=== PATIENT | female | born 1950 | race Caucasian/White ===

== ENCOUNTER → 2019-05-06 | Outpatient (CLI) | payer MEDICARE, OTHER ==
[~2019-05-06] MED LIST: HCTZ25 PO; LEV100 PO; LIS20 PO
--- NOTE | 2019-05-06 16:12 | RADIOLOGY IMAGING REPORT ---
FACILITY: [facility] PATIENT NAME: Liliya Astudillo : 1950 MR: [id number] V: [id number] EXAM DATE: ORDERING PHYSICIAN: SITA SCHWARTZ TECHNOLOGIST: Location: [facility] [place] Patient: Liliya Astudillo : 1950 Visit/Account:[id number] Date of Sevice: 05/06/2019 DEXA Scan Clinical history: Osteopenia. Comparison: None available. LUMBAR SPINE: The bone mineral density (BMD) measured from L1-L4 correlates with a Z-score 0.6 and a T-score of -1. 5 which is osteopenia as defined by the World Health Organization. The corresponding risk of fractur e in the lumbar spine is 3 times compared with a young adult reference population. This value has in creased by 1.3% as compared to prior study. 5% is considered significant. HIP: Bone mineral density (BMD) measured in the Left total hip region correlates with a Z-score -1.4 and a T-score of -3.1 which is osteoporosis as defined by the World Health Organization. The correspondin g risk of fracture in the hip is 8-12 times compared with a young adult reference population. This value has decreased by 1.9% as compared to prior study. Bone mineral density (BMD) measured in the Femoral Neck region measures 0.625 g/cm2. T score is -3.0 , osteoporosis Impression: 1. Lumbar spine: Osteopenia. Significant change as compared to prior study 2. Left Hip: Osteoporosis. No significant interval change as compared to prior study. 3. Femoral Neck: Bone Mineral Density is 0.65 g/cm2 osteoporosis. The next DEXA scan of this patient should include the following sites: L1-L4 and the left hip. FRAX? WHO Fracture Risk Assessment Tool link: <http://www.shef.ac.uk/FRAX/tool.jsp?locationValue=9> PLEASE NOTE: 1) The World Health Organization defines low BMD as follows: T-score Normal > -1 Osteopenia < -1 and > -2.5 Osteoporosis < -2.5 without fractures Established osteoporosis < -2.5 with fractures 2) In general, you may wish to consider: Diagnosis Treatment Follow-up DEXA Normal BMD Prevention 2-3 years Osteopenia Prevention/therapy 1-2 years Osteoporosis Therapy Yearly 3) Fracture risk estimated from the T-score is more accurate for vertebral fractures (often spontane ous) than for hip fractures. Hip without Report Dictated By: Goran Davila MD at 05/06/2019 12:03 PM Report E-Signed By: Goran Davila MD at 05/06/2019 4:04 PM WSN:[email or web address]
--- NOTE | 2019-05-11 13:50 | RADIOLOGY IMAGING REPORT ---
FACILITY: [facility] PATIENT NAME: AKILA CASTRO : [id number] MR: [id number] V: [id number] EXAM DATE: [id number] ORDERING PHYSICIAN: SITA SCHWARTZ TECHNOLOGIST: Krys Willams PROCEDURE: BILATERAL DIGITAL SCREENING MAMMOGRAM WITH CAD ASSISTED INTERPRETATION & 3D TOMOSYNTHESIS. REASON FOR STUDY: Screening. COMPARISON: 09/19/2015. VIEWS OBTAINED: 2D & 3D full field CC & MLO projections. BREAST DENSITY: Scattered fibroglandular tissue elements. MAMMOGRAM FINDINGS: There is no suspicious mass, calcification, or architectural distortion. IMPRESSION: BIRADS 1: Negative. DIAGNOSTIC CATEGORY 1--NEGATIVE. RECOMMENDATIONS: ROUTINE MAMMOGRAM AND CLINICAL EVALUATION IN 1YR. Dictated by: Cem Cabral M.D. on 05/11/2019 at 8:23 Transcribed by: MICAH on 05/11/2019 at 8:35 Approved by: Cem Cabral M.D. on 05/11/2019 at 13:46 [facility]
== END ==
LOC: MAMO 03:48
PROVIDERS: ATTEND Nurse Practitioner Psychiatric/Mental Health
DX: Z13.820 Encounter for screening for osteoporosis (principal); Z12.31 Encounter for screening mammogram for malignant neoplasm of breast; M81.0 Age-related osteoporosis without current pathological fracture; M85.88 Other specified disorders of bone density and structure, other site
CPT/HCPCS: 77063; 77067; 77080